=== PATIENT | female | born 1970 | race Hispanic/Latino ===

== ENCOUNTER 2017-08-15 15:29 | Outpatient (CLI) | payer SELFPAY ==
--- NOTE | 2017-08-17 12:19 | MMO ---
BILATERAL DIGITAL SCREENING MAMMOGRAMS: HISTORY: This 47-year-old female presents for digital screening mammography. COMPARISON: 09/04/14, 08/24/13, 08/03/12. This patient's mammogram is interpreted with the assistance of computer-aided detection. Scattered fibroglandular changes. Occasional typically benign calcifications. IMPRESSION: BI-RADS category 2, benign findings. Continued routine screening. BIRADS 2: Benign Finding(s) Routine annual screening mammography (for women over age 40) POS: [facility]
== END 2017-08-15 15:30 | disposition home or self-care (01) ==
LOC: SCSMAMMO 15:29
PROVIDERS: ATTEND Nurse Practitioner Family
DX: Z12.31 Encounter for screening mammogram for malignant neoplasm of breast (principal)
CPT/HCPCS: 77067